=== PATIENT | male | born 1960 | race Caucasian/White ===

== ENCOUNTER → 2016-04-10 | Outpatient (CLI) | payer OTHER ==
--- NOTE | 2016-04-10 16:39 | DX ---
Right wrist series 4 views 1211 hours. History: Right wrist pain and swelling after lifting heavy objects yesterday. Carpal tunnel surgery 2 years ago. Findings: There is suspicion of fracture involving the mid body of the navicular with nonunion. There is sclerosis and compression of the proximal half of the navicula probably from avascular necrosis. The remainder of the carpal bones are normal in appearance. Joint spaces are normal. Soft tissues are unremarkable. Impression: 1. 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
== END ==
LOC: BRMIMAGING 12:09
DX: M25.531 Pain in right wrist (principal); M79.89 Other specified soft tissue disorders; Z98.890 Other specified postprocedural states
CPT/HCPCS: 73110-PO

== ENCOUNTER → 2016-04-29 | Outpatient (CLI) | payer OTHER | LOC: BRMIMAGING 16:07 | PROVIDERS: ATTEND Internal Medicine | DX: M25.511 Pain in right shoulder (principal) | CPT/HCPCS: 73030-PO ==

== ENCOUNTER 2016-12-17 05:45 | Emergency (ER) | payer OTHER ==
[2016-12-17] MEDS ORDERED: NS 1,000 ML IV ONE (05:49)
--- NOTE | 2016-12-17 05:53 | EDPHY ---
H & P Source: Patient, EMS HPI/ROS: HPI CHIEF COMPLAINT: Diaphoresis and fatigue HISTORY OF PRESENT ILLNESS: This patient very pleasant 56-year-old male he is an insulin-dependent diabetic, additionally he has coronary artery disease with multiple stents, he presents emergency room after he became diaphoretic while driving to work. Patient drives about approximately 40 minutes to work. He states that he has normal routine he left his house at 3:50 a.m. in the morning and typically gets to work around 430. He was pulling into the work parking lot here in [place] and was diaphoretic. [place] very bad. Fatigued. Very tired. Denies chest pain or shortness of breath denies headache. EMS states that when I got me was diffusely diaphoretic dripping sweat they checked his blood sugar and he was 60. They gave him dextrose his blood sugar came up to the 120s and he felt better. He did not have any chest pain or shortness of breath at that time. He has not been sick recently. He states that he took his normal medications like he normally does in the morning and insulin. He states he did not take more insulin than he normally does. Additionally reports that he ate a normal [place] food dinner last night. He does not normally eat breakfast in the morning until he gets to work. Patient denies any chest pain shortness of breath or pleuritic pain. He now presents emergency room states he is very very tired and fatigued he does not have any chest pain or shortness of breath. However he does report that he felt better after the dextrose. Patient reports to me that he takes insulin called Humulin-N 1 unit twice a day. Also takes glipizide 10mg. Past Medical History: Coronary artery disease, insulin-dependent diabetes coronary disease with stents Past Surgical History: PTCA Social History: Smokes marijuana, denies other illicit drugs alcohol tobacco. Family History: Noncontributory ROS REVIEW OF SYSTEMS: A comprehensive 10 point review of systems is otherwise negative aside from elements mentioned in the history of present illness. Exam Constitutional appears well nontoxic, not diaphoretic at this time triage nursing summary reviewed, vital signs reviewed, awake/alert. Eyes normal conjunctivae and sclera, EOMI, PERRLA. HENT normal inspection, atraumatic, moist mucus membranes, no epistaxis, neck supple/ no meningismus, no raccoon eyes. Respiratory clear to auscultation bilaterally, normal breath sounds, no respiratory distress, no wheezing. Cardiovascular rate normal, regular rhythm, no murmur, no edema, distal pulses normal. Gastrointestinal soft, non-tender, no rebound, no guarding, normal bowel sounds, no distension, no pulsatile mass. Genitourinary no CVA tenderness. Musculoskeletal no midline vertebral tenderness, full range of motion, no calf swelling, no tenderness of extremities, no meningismus, good pulses, neurovascularly intact. Skin pink, warm, & dry, no rash, skin atraumatic. Neurologic awake, alert and oriented x 3, AAOx3, moves all 4 extremities equally, motor intact, sensory intact, CN II-XII intact, normal cerebellar, normal vision, normal speech. Left lower extremity is in a walking boot for a recent foot fracture. Psychiatric normal mood/affect. Heme/Lymph/Immune no lymphadenopathy. 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 Re-evaluation: EKG interpretation by me on record in [employer] system. Impression time of EKG 5:50 a.m., this is sinus rhythm rate of 52 there is a nonspecific intraventricular conduction delay but otherwise I do not appreciate any signs of cardiac arrhythmia acute ischemia. ED x-ray chest one view: Negative for acute cardiopulmonary disease. Cardiomegaly present. Image reviewed by myself. 0643: Blood work resulted. Glucose noted to be 57. Will feet patient 0645: Patient is signed over to Dr. Doris Burton at 7:00 a.m. shift change to further observe this patient for further episodes of hypoglycemia. Will feed the patient. Will monitor him for further episodes of hypoglycemia if he stays within the normal range in feels okay to go home. (Pedrito Grajeda) Constitutional: Initial Vital Signs Temperature (C) 36.4 C 12/17/16 05:52 Heart Rate 51 L 12/17/16 05:52 Respiratory Rate 16 12/17/16 05:52 Blood Pressure 122/82 H 12/17/16 05:52 O2 Sat (%) 93 12/17/16 05:52 O2 Delivery Mode Room Air Allergies/Adverse Reactions: Penicillins Allergy (Severe, Verified 12/17/16 05:54) Home Medications: Medication Instructions Recorded Clopidogrel 12/17/16 GLIPIZIDE 12/17/16 Humulin N 12/17/16 K-Tab ER 12/17/16 Labetalol HCl 12/17/16 Lisinopril 12/17/16 Pantoprazole Sodium 12/17/16 Sertraline HCl 12/17/16 amLODIPine BESYLATE 12/17/16 Medical Decision Making - Diagnostics Imaging Results: Imaging Impressions Chest X-Ray 12/17/16 05:50 Impression: 1. No acute pulmonary disease. 2. Consider chest two views when the patient's medical condition permits. ED Course/Re-evaluation: 7:00 a.m.-I assumed care of this patient at shift change. On my evaluation, he is sleeping comfortably and easily aroused. He presented with hypoglycemia and diaphoresis related to hypoglycemia. He feels that he is back to his baseline. We will observe him and give him breakfast. Repeat blood sugars remained within normal limits and he ate breakfast. He will check his blood sugar frequently today and eat regularly. (Doris Burton) - Data Points Laboratory Results: Laboratory Results 12/17/16 05:50 12/17/16 05:50 12/17/16 12/17/16 12/17/16 08:23 07:26 05:50 WBC RBC Hgb Hct MCV MCH MCHC RDW Plt Count MPV Neut % (Auto) Lymph % (Auto) [place] % (Auto) Eos % (Auto) Baso % (Auto) Nucleat RBC Rel Count Absolute Neuts (auto) Absolute Lymphs (auto) Absolute Monos (auto) Absolute Eos (auto) Absolute Basos (auto) Absolute Nucleated RBC Immature Gran % Immature Gran # PT INR APTT Sodium 147 mEq/L H mEq/L (134-144) Potassium 3.6 mEq/L mEq/L (3.5-5.2) Chloride 107 mEq/L mEq/L (97-110) Carbon Dioxide 26 mEq/l mEq/l (22-31) Anion Gap 14 mEq/L mEq/L (8-16) BUN 10 mg/dL mg/dL (7-23) Creatinine 0.8 mg/dL mg/dL (0.7-1.3) Estimated GFR > 60 Glucose 57 mg/dL L mg/dL (70-100) POC Glucose 195 mg/dL H mg/dL 114 mg/dL H mg/dL (70-100) (70-100) Calcium 9.9 mg/dL mg/dL (8.5-10.4) Magnesium 2.0 mg/dL mg/dL (1.6-2.3) Total Bilirubin 0.9 mg/dL mg/dL (0.1-1.4) Conjugated Bilirubin 0.4 mg/dL mg/dL (0.0-0.5) Unconjugated Bilirubin 0.5 mg/dL mg/dL (0.0-1.1) AST 23 IU/L IU/L (17-59) ALT 41 IU/L IU/L (21-72) Alkaline Phosphatase 140 IU/L H IU/L (38-126) Creatine Kinase 83 IU/L IU/L (0-224) CK-MB (CK-2) Fraction 1.08 ng/mL ng/mL (0.00-3.19) Troponin I < 0.012 ng/mL ng/mL (0.000-0.034) NT-Pro-B Natriuret Pep 59 pg/mL pg/mL (0-125) Total Protein 8.6 g/dL H g/dL (6.3-8.2) Albumin 5.0 g/dL g/dL (3.5-5.0) Lipase 247 IU/L IU/L (23-300) 12/17/16 12/17/16 05:50 05:50 WBC 8.24 10^3/uL 10^3/uL (3.80-9.50) RBC 4.67 10^6/uL 10^6/uL (4.40-6.38) Hgb 16.4 g/dL g/dL (13.7-17.5) Hct 47.7 % % (40.0-51.0) MCV 102.1 fL H fL (81.5-99.8) MCH 35.1 pg H pg (27.9-34.1) MCHC 34.4 g/dL g/dL (32.4-36.7) RDW 11.8 % % (11.5-15.2) Plt Count 235 10^3/uL 10^3/uL (150-400) MPV 9.8 fL fL (8.7-11.7) Neut % (Auto) 69.3 % % (39.3-74.2) Lymph % (Auto) 17.1 % % (15.0-45.0) [place] % (Auto) 10.0 % % (4.5-13.0) Eos % (Auto) 2.5 % % (0.6-7.6) Baso % (Auto) 0.6 % % (0.3-1.7) Nucleat RBC Rel Count 0.0 % % (0.0-0.2) Absolute Neuts (auto) 5.71 10^3/uL 10^3/uL (1.70-6.50) Absolute Lymphs (auto) 1.41 10^3/uL 10^3/uL (1.00-3.00) Absolute Monos (auto) 0.82 10^3/uL H 10^3/uL (0.30-0.80) Absolute Eos (auto) 0.21 10^3/uL 10^3/uL (0.03-0.40) Absolute Basos (auto) 0.05 10^3/uL 10^3/uL (0.02-0.10) Absolute Nucleated RBC 0.00 10^3/uL 10^3/uL (0-0.01) Immature Gran % 0.5 % % (0.0-1.1) Immature Gran # 0.04 10^3/uL 10^3/uL (0.00-0.10) PT 13.0 SEC SEC (12.0-15.0) INR 0.99 (0.83-1.16) APTT 47.7 SEC H SEC (23.0-38.0) Sodium Potassium Chloride Carbon Dioxide Anion Gap BUN Creatinine Estimated GFR Glucose POC Glucose Calcium Magnesium Total Bilirubin Conjugated Bilirubin Unconjugated Bilirubin AST ALT Alkaline Phosphatase Creatine Kinase CK-MB (CK-2) Fraction Troponin I NT-Pro-B Natriuret Pep Total Protein Albumin Lipase Medications Given: Discontinued Medications Sodium Chloride (Ns) 1,000 mls @ 0 mls/hr IV EDNOW ONE; Wide Open PRN Reason: Protocol Stop: 12/17/16 05:50 Last Admin: 12/17/16 06:01 Dose: 1,000 mls Point of Care Test Results: 12/17/16 12/17/16 07:26 08:23 POC Glucose 114 H 195 H Departure - Departure Disposition: Home, Routine, Self-Care Clinical Impression: Hypoglycemia Condition: Good Instructions: Hypoglycemia in a Person with Diabetes (ED) Additional Instructions: Eat 3 meals daily, including breakfast. Check your blood sugar before meals and at bedtime. Referrals: Brittny Jimenez MD [Medical Doctor] - As per Instructions
--- NOTE | 2016-12-17 05:59 | CPEKG ---
Heart Rate: 52 RR Interval: 1154 P-R Interval: 168 QRSD Interval: 110 QT Interval: 476 QTC Interval: 443 P [place]: 23 QRS [place]: -28 T Wave [place]: 6 EKG Severity - ABNORMAL ECG - EKG Impression: SINUS RHYTHM Electronically Signed By: Doris Burton 17-Dec-2016 15:25:10
[2016-12-17 06:06] LABS: % IMMATURE GRANULYOCYTES 0.5 % (0.0-1.1); ABSOLUTE IMMATURE GRANULOCYTES 0.04 10^3/uL (0.00-0.10); ADD DIFF? NO; ADD MORPH? NO; ADD SCAN? NO; ATYPICAL LYMPHOCYTE FLAG 0 (0-99); FRAGMENT RBC FLAG 0 (0-99); HEMATOCRIT 47.7 % (40.0-51.0); HEMOGLOBIN 16.4 g/dL (13.7-17.5); LEFT SHIFT FLG 0 (0-99); LIPEMIA HEMOLYSIS FLAG 90 (0-99); MEAN CELL HEMOGLOBIN 35.1 pg (27.9-34.1); MEAN CELL HEMOGLOBIN CONCENTR. 34.4 g/dL (32.4-36.7); MEAN CELL VOLUME 102.1 fL (81.5-99.8); MEAN PLATELET VOLUME 9.8 fL (8.7-11.7); PLATELET CLUMPS FLAG 0 (0-99); PLATELET COUNT 235 10^3/uL (150-400); RED BLOOD CELL COUNT 4.67 10^6/uL (4.40-6.38); RED CELL DISTRIBUTION WIDTH 11.8 % (11.5-15.2)
[2016-12-17 06:17] LABS: APTT 47.7 SEC (23.0-38.0)
[2016-12-17 06:24] LABS: INR 0.99 (0.83-1.16)
[2016-12-17 06:42] LABS: ALANINE AMINOTRANSFERASE 41 IU/L (21-72); ALKALINE PHOSPHATASE 140 IU/L (38-126); ANION GAP 14 mEq/L (8-16); ASPARTATE AMINOTRANSFERASE 23 IU/L (17-59); BILIRUBIN,TOTAL 0.9 mg/dL (0.1-1.4); BILIRUBIN-CONJUGATED 0.4 mg/dL (0.0-0.5); BILIRUBIN-UNCONJUGATED 0.5 mg/dL (0.0-1.1); CALCIUM 9.9 mg/dL (8.5-10.4); CARBON DIOXIDE 26 mEq/l (22-31); CHLORIDE 107 mEq/L (97-110); CREATININE 0.8 mg/dL (0.7-1.3); GLOMERULAR FILTRATION RATE > 60; GLUCOSE 57 mg/dL (70-100); POTASSIUM 3.6 mEq/L (3.5-5.2); SODIUM 147 mEq/L (134-144); TOTAL PROTEIN 8.6 g/dL (6.3-8.2)
[2016-12-17 06:53] LABS: CREATINE KINASE-MB FRACTION 1.08 ng/mL (0.00-3.19); TROPONIN I < 0.012 ng/mL (0.000-0.034)
[2016-12-17 09:42] VITALS: BP 108/79; PULSE 81; RESP 19; TEMP 98.4; O2SAT 94
== END 2016-12-17 09:48 | disposition home or self-care (01) ==
LOC: EDUNIT#
DX: E11.649 Type 2 diabetes mellitus with hypoglycemia without coma (principal); E86.9 Volume depletion, unspecified; F17.200 Nicotine dependence, unspecified, uncomplicated; I25.10 Atherosclerotic heart disease of native coronary artery without angina pectoris; Z79.4 Long term (current) use of insulin